=== PATIENT | female | born 1985 | race Caucasian/White ===

== ENCOUNTER 2018-04-08 13:41 | Inpatient (IN) | payer MEDICAID ==
[2018-04-08 15:08] LABS: ADD UMIC NO; UR ASCORBIC ACID NEGATIVE (NEGATIVE); UR BILIRUBIN (Dip) NEGATIVE (NEGATIVE); UR BLOOD (Dip) NEGATIVE (NEGATIVE); UR CLARITY CLEAR (CLEAR); UR COLOR YELLOW (YELLOW); UR GLUCOSE (Dip) NEGATIVE (NEGATIVE); UR KETONES (Dip) TRACE mg/dL (NEGATIVE); UR LEUKOCYTE ESTERASE (Dip) NEGATIVE Leu/ul (NEGATIVE); UR NITRITE (Dip) NEGATIVE (NEGATIVE); UR SPECIFIC GRAVITY (Dip) 1.021 (1.003-1.030); UR TOTAL PROTEIN (Dip) NEGATIVE (NEGATIVE); UR UROBILINOGEN (Dip) NEGATIVE (NEGATIVE)
[2018-04-08] MEDS: LACTATED RINGER'S 1,000 ML IV (16:58)
[2018-04-08] MEDS: BETAMET NA PHOS/AC(6 MG/ML) 5ML INJ IM (17:06)
[2018-04-09] MEDS: LACTATED RINGER'S 1,000 ML IV ×2 (00:45→09:34)
[2018-04-09] MEDS: LABETALOL 100 MG TAB PO (09:14)
[2018-04-09] MEDS: PRENATAL VITAMIN PO (09:14)
[2018-04-09] MEDS: BETAMET NA PHOS/AC(6 MG/ML) 5ML INJ IM (16:32)
== END 2018-04-09 18:59 | disposition home or self-care (01) | DRG 833 ==
LOC: OBT 13:41 → L-D 13:41 → OBT 15:55 → PP1 15:55
DX: O23.43 Unspecified infection of urinary tract in pregnancy, third trimester (principal); B96.89 Other specified bacterial agents as the cause of diseases classified elsewhere; O28.1 Abnormal biochemical finding on antenatal screening of mother; O62.9 Abnormality of forces of labor, unspecified; O09.293 Supervision of pregnancy with other poor reproductive or obstetric history, third trimester; Z3A.29 29 weeks gestation of pregnancy
CPT/HCPCS: 76817; 76818; 81003; 82731; 87086

== ENCOUNTER 2018-05-17 22:15 | Outpatient (CLI) | payer MEDICAID ==
[2018-05-17 23:14] LABS: ADD UMIC NO; UR ASCORBIC ACID NEGATIVE (NEGATIVE); UR BACTERIA FEW /HPF (NONE SEEN); UR BILIRUBIN (Dip) NEGATIVE (NEGATIVE); UR BLOOD (Dip) NEGATIVE (NEGATIVE); UR CLARITY SLIGHTLY CLOUDY (CLEAR); UR COLOR YELLOW (YELLOW); UR GLUCOSE (Dip) 2+ mg/dL (NEGATIVE); UR KETONES (Dip) NEGATIVE (NEGATIVE); UR LEUKOCYTE ESTERASE (Dip) NEGATIVE Leu/ul (NEGATIVE); UR MUCUS FEW /HPF (NONE SEEN); UR NITRITE (Dip) NEGATIVE (NEGATIVE); UR RBC 3 /HPF (0-5); UR SPECIFIC GRAVITY (Dip) 1.015 (1.003-1.030); UR SQUAMOUS EPITHELIAL CELL FEW /HPF (FEW); UR TOTAL PROTEIN (Dip) NEGATIVE (NEGATIVE); UR UROBILINOGEN (Dip) NEGATIVE (NEGATIVE); UR WBC 1 /HPF (0-5)
[2018-05-18] MEDS: HYDROCODONE/APAP (5/325) TAB PO (00:03)
== END 2018-05-18 00:10 | disposition home or self-care (01) ==
LOC: OBT 22:15 → L-D 22:16
DX: O62.9 Abnormality of forces of labor, unspecified (principal); Z3A.35 35 weeks gestation of pregnancy
CPT/HCPCS: 76815; 76818; 81001; 81003